=== PATIENT | male | born 1960 | race Two or more races ===

== ENCOUNTER → 2024-04-01 | Outpatient (CLI) | payer MEDICARE, MEDICAID, SELFPAY ==
[2024-04-01 15:59] LABS: Prostate Specific Antigen 3.15 ng/mL (0-4.00)
== END | disposition home or self-care (01) ==
LOC: COPL 14:39
PROVIDERS: PCP Family Medicine; Referring Provider Surgery; Visit Provider Surgery
DX: C61 Malignant neoplasm of prostate (principal)
CPT/HCPCS: 36415; 84153